=== PATIENT | male | born 1955 | race Caucasian/White ===

== ENCOUNTER → 2020-02-15 10:21 | Outpatient (CLI) | payer OTHER, SELFPAY | PROVIDERS: PCP Student in an Organized Health Care Education/Training Program; Referring Provider Student in an Organized Health Care Education/Training Program; Visit Provider Family Medicine | DX: S81.802A Unspecified open wound, left lower leg, initial encounter (principal) | CPT/HCPCS: 11042; 87070; 87075; 87205; 99203; 99213 ==

== ENCOUNTER → 2020-02-22 09:54 | Outpatient (CLI) | payer OTHER, SELFPAY | PROVIDERS: PCP Student in an Organized Health Care Education/Training Program; Referring Provider Student in an Organized Health Care Education/Training Program; Visit Provider Family Medicine | DX: S81.802A Unspecified open wound, left lower leg, initial encounter (principal) | CPT/HCPCS: 11042 ==

== ENCOUNTER → 2020-03-07 11:28 | Outpatient (CLI) | payer OTHER, SELFPAY | PROVIDERS: PCP Student in an Organized Health Care Education/Training Program; Referring Provider Student in an Organized Health Care Education/Training Program; Visit Provider Family Medicine | DX: S81.802A Unspecified open wound, left lower leg, initial encounter (principal) | CPT/HCPCS: 11042 ==

== ENCOUNTER → 2020-03-14 14:41 | Outpatient (CLI) | payer OTHER, SELFPAY | PROVIDERS: PCP Student in an Organized Health Care Education/Training Program; Referring Provider Student in an Organized Health Care Education/Training Program; Visit Provider Family Medicine | DX: S81.802A Unspecified open wound, left lower leg, initial encounter (principal) | CPT/HCPCS: 97607; 99213 ==

== ENCOUNTER → 2020-03-21 10:09 | Outpatient (CLI) | payer OTHER, SELFPAY | PROVIDERS: PCP Student in an Organized Health Care Education/Training Program; Referring Provider Student in an Organized Health Care Education/Training Program; Visit Provider Family Medicine | DX: S81.802A Unspecified open wound, left lower leg, initial encounter (principal) | CPT/HCPCS: 15271; 99213; Q4110 ==

== ENCOUNTER → 2020-03-30 11:17 | Outpatient (CLI) | payer OTHER, SELFPAY | PROVIDERS: PCP Student in an Organized Health Care Education/Training Program; Referring Provider Student in an Organized Health Care Education/Training Program; Visit Provider Family Medicine | DX: S81.802A Unspecified open wound, left lower leg, initial encounter (principal) | CPT/HCPCS: 97597 ==

== ENCOUNTER → 2020-04-06 11:49 | Outpatient (CLI) | payer OTHER, SELFPAY | PROVIDERS: PCP Student in an Organized Health Care Education/Training Program; Referring Provider Student in an Organized Health Care Education/Training Program; Visit Provider Family Medicine | DX: S81.802A Unspecified open wound, left lower leg, initial encounter (principal); S51.001A Unspecified open wound of right elbow, initial encounter; L03.113 Cellulitis of right upper limb | CPT/HCPCS: 11042; 87070; 87075; 87205; 97597; 99214 ==

== ENCOUNTER → 2020-04-20 15:27 | Outpatient (CLI) | payer OTHER, SELFPAY | PROVIDERS: PCP Student in an Organized Health Care Education/Training Program; Referring Provider Student in an Organized Health Care Education/Training Program; Visit Provider Family Medicine | DX: S51.001A Unspecified open wound of right elbow, initial encounter (principal); Z48.01 Encounter for change or removal of surgical wound dressing; R53.83 Other fatigue; R68.83 Chills (without fever) | CPT/HCPCS: 87070; 87075; 87205; 97597; 99213 ==

== ENCOUNTER 2020-06-17 23:52 | Emergency (ER) | payer OTHER, SELFPAY ==
[2020-06-18 00:06] VITALS: BP 157/92; PULSE 82; RESP 18; TEMP 36.5; O2SAT 100; BMI 18.3
--- NOTE | 2020-06-18 00:08 | ED_ITS ---
HPI - General Adult General Chief complaint: Toxicology Problem Stated complaint: Pt just went for alcohol detox, having problems Time Seen by Provider: 06/17/20 23:55 Source: patient Mode of arrival: other (Taxi) Limitations: no limitations History of Present Illness HPI narrative: Patient is a 64-year-old male who stated that he left alcohol detox down in [facility] today. He states that he was scheduled to be discharged tomorrow however he thought that ?something was going on ?with the medications that he was receiving down there. Patient states he was getting Librium and Ativan. He states ?I know what Librium looks like ?in the medicine that he was receiving he stated look different than his prior medications. He states that he voluntarily went to detox at this facility and checked himself in at the beginning of the week. Towards the middle of the week he stated that he was having quite a bit of shaking. He stated that he asked the staff down there for a physician's desk of reference so that he could cross reference the pills that he was receiving with the the pictures in the book and he stated that he was yelled at by the staff. He left voluntarily. He stated he arrived at this facility by taxi. He did admit to drinking alcohol prior to arrival. He has been in detox in the past. Admits to being an alcoholic. Has gone through withdrawals in the past. Has never had a seizure. He comes to this department here asking for help with alcohol issues. Related Data Previous Rx's Medication Instructions Recorded lorazepam [Ativan] 1 mg PO DAILY PRN #9 tab 06/18/20 Allergies Allergy/AdvReac Type Severity Reaction Status Date / Time No Known Drug Allergies Allergy Verified 06/18/20 01:52 PDT Review of Systems Constitutional Constitutional: Denies fever(s) and Denies headache(s) ENT Ears, Nose, Mouth, and Throat: Denies headache(s) Cardiovascular Cardiovascular: Denies chest pain and Denies dyspnea Respiratory Respiratory: Denies dyspnea Gastrointestinal Gastrointestinal: Denies abdominal pain Musculoskeletal Musculoskeletal: Denies arthralgias and Denies myalgias Integumentary/Breasts Skin/Breast: Denies rash Neurologic Neurologic: Denies headache(s) and Reports tremor(s) Hematologic/Lymphatic Hematologic/Lymphatic: Denies easy bleeding and Denies easy bruising Allergic/Immunologic Allergic/Immunologic: Denies urticaria Patient History Medical History Alcohol abuse (Acute) Social History Smoking Status: Current every day smoker Exam Initial Vital Signs Initial Vital Signs: Vital Signs Temperature 97.7 F 06/18/20 00:06 Pulse Rate 82 06/18/20 00:06 Respiratory Rate 18 06/18/20 00:06 Blood Pressure 157/92 H 06/18/20 00:06 Pulse Oximetry 100 06/18/20 00:06 Const General: cooperative, comfortable and anxious Limitations: mental status not altered HENMT Head: normal to inspection and normocephalic Resp Effort & Inspection: normal respiratory effort Cardio Rate: regular rate Skin Lesions: no lesions Rashes: no rashes Neuro General: patient alert, patient awake and patient oriented x3 Speech: speech normal Psych Appearance: well kempt Speech and Movement: restless Mood: anxious mood Affect: irritable affect Attitude: cooperative Scores GCS Matador coma scale eye opening: Spontaneous Matador coma scale verbal response: Orientated Mat[place] coma scale motor response: Obey commands [place] coma scale total score: 15 Course Orders Ordered: ED Orders 06/18/20 00:30 Complete Blood Count AUTO DIFF Stat Comprehensive Metabolic Panel Stat Ethanol (ETOH) Stat Lipase Stat 06/18/20 00:45 Urine Drug Screen, Rapid Stat 06/18/20 00:50 COVID19 -ED/INPAT/OR/L&D Stat Discontinued Medications Acetaminophen (Tylenol) 650 mg PO NOW ONE Stop: 06/18/20 00:38 Last Admin: 06/18/20 00:42 Dose: 650 mg Documented by: RUBI Chlordiazepoxide HCl (Librium) 25 mg PO NOW ONE Stop: 06/18/20 00:16 Last Admin: 06/18/20 00:42 Dose: 25 mg Documented by: RUBI Chlordiazepoxide HCl (Librium) 25 mg PO NOW ONE Stop: 06/18/20 02:00 Last Admin: 06/18/20 01:48 PST Dose: 25 mg Documented by: MARIAH Ondansetron HCl (Zofran Odt) 4 mg SL NOW ONE Stop: 06/18/20 00:38 Last Admin: 06/18/20 00:43 Dose: 4 mg Documented by: RUBI Vital Signs Vital signs: Vital Signs - 8 hr 06/18/20 00:06 06/18/20 01:55 PDT 06/18/20 01:32 PST Temperature 97.7 F Pulse Rate 82 78 69 Respiratory Rate 18 17 Blood Pressure 157/92 H 150/80 H Pulse Oximetry 100 98 100 Medical Decision Making Lab Data Lab results reviewed: Yes I reviewed the patient's lab results. Result diagrams: 06/18/20 00:30 06/18/20 00:30 Labs: Lab Results 06/18/20 06/18/20 06/18/20 Range/Units 00:30 00:30 00:30 WBC 8.4 (4.5-11.0) X10^3/uL RBC 3.83 L (4.5-5.9) X10^6/uL Hgb 12.7 L (13.5-17.5) g/dL Hct 37.3 L (41-53) % MCV 97.6 (80-100) fL MCH 33.2 (26-34) PG MCHC 34.0 (30-36) % RDW 14.6 (11.6-14.8) % Plt Count 216 (150-400) X10^3/uL Neut % (Auto) 57.0 (50-75) % Lymph % (Auto) 27.7 (25-40) % [place] % (Auto) 13.0 (3-14) % Eos % (Auto) 1.2 L (2-4) % Baso % (Auto) 1.1 (0-2) % Neut # (Auto) 4800 (8097-1922) /uL Lymph # (Auto) 2300 (2995-1317) /uL [place] # (Auto) 1100 H (0-900) /uL Eos # (Auto) 100 (0-450) /uL Baso # (Auto) 100 (0-100) /uL Sodium 137 (137-145) mmol/L Potassium 3.9 (3.4-5.1) mmol/L Chloride 103 (98-107) mmol/L Carbon Dioxide 28 (22-32) mmol/L BUN 11 (9-20) mg/dL Creatinine 0.67 (0.66-1.25) mg/dL Estimated GFR > 60.0 (>60) mL/min BUN/Creatinine Ratio 16.4 (6-22) Glucose 61 L (80-110) mg/dL Calcium 9.0 (8.4-10.2) mg/dL Total Bilirubin 0.4 (0.2-1.3) mg/dL AST 69 H (17-59) IU/L ALT 74 H (<50) IU/L Alkaline Phosphatase 95 (38-126) U/L Total Protein 7.4 (6.3-8.2) g/dL Albumin 4.4 (3.5-5.0) g/dL Globulin 3.0 (1.7-4.1) g/dL Albumin/Globulin Ratio 1.5 (1.0-2.8) Lipase 408 H (23-300) U/L U Opiates 300ng/mL cut (Negative) Ur Oxycodone Screen (Negative) Urine Methadone Screen (Negative) Ur Barbiturates Screen (Negative) U Tricyclic Antidepress (Negative) Ur Phencyclidine Scrn (Negative) Ur Amphetamines Screen (Negative) U Methamphetamines Scrn (Negative) Ur MDMA Scrn (Ecstasy) (Negative) U Benzodiazepines Scrn (Negative) Urine Cocaine Screen (Negative) U Marijuana (THC) Screen (Negative) Ethyl Alcohol 125 H ( - 10) mg/dL COVID-19 PCR (Negative) 06/18/20 06/18/20 Range/Units 00:45 00:50 WBC (4.5-11.0) X10^3/uL RBC (4.5-5.9) X10^6/uL Hgb (13.5-17.5) g/dL Hct (41-53) % MCV (80-100) fL MCH (26-34) PG MCHC (30-36) % RDW (11.6-14.8) % Plt Count (150-400) X10^3/uL Neut % (Auto) (50-75) % Lymph % (Auto) (25-40) % [place] % (Auto) (3-14) % Eos % (Auto) (2-4) % Baso % (Auto) (0-2) % Neut # (Auto) (6383-8645) /uL Lymph # (Auto) (6754-8717) /uL [place] # (Auto) (0-900) /uL Eos # (Auto) (0-450) /uL Baso # (Auto) (0-100) /uL Sodium (137-145) mmol/L Potassium (3.4-5.1) mmol/L Chloride (98-107) mmol/L Carbon Dioxide (22-32) mmol/L BUN (9-20) mg/dL Creatinine (0.66-1.25) mg/dL Estimated GFR (>60) mL/min BUN/Creatinine Ratio (6-22) Glucose (80-110) mg/dL Calcium (8.4-10.2) mg/dL Total Bilirubin (0.2-1.3) mg/dL AST (17-59) IU/L ALT (<50) IU/L Alkaline Phosphatase (38-126) U/L Total Protein (6.3-8.2) g/dL Albumin (3.5-5.0) g/dL Globulin (1.7-4.1) g/dL Albumin/Globulin Ratio (1.0-2.8) Lipase (23-300) U/L U Opiates 300ng/mL cut Negative (Negative) Ur Oxycodone Screen Negative (Negative) Urine Methadone Screen Negative (Negative) Ur Barbiturates Screen Negative (Negative) U Tricyclic Antidepress Negative (Negative) Ur Phencyclidine Scrn Negative (Negative) Ur Amphetamines Screen Negative (Negative) U Methamphetamines Scrn Negative (Negative) Ur MDMA Scrn (Ecstasy) Negative (Negative) U Benzodiazepines Scrn Positive H (Negative) Urine Cocaine Screen Negative (Negative) U Marijuana (THC) Screen Negative (Negative) Ethyl Alcohol ( - 10) mg/dL COVID-19 PCR Negative (Negative) MDM Narrative Medical decision making narrative: UDS positive for benzodiazepines however he has been receiving Ativan and Librium. Alcohol level 125. Patient admitted to drinking alcohol prior to arrival. He is alert oriented x3. Patient is medically cleared. Discharge Plan Departure Patient Disposition: Home Clinical Impression: Alcoholic intoxication Instructions: DI for Alcohol Use Disorder Activity Restrictions/Additional Instructions: You are being discharged to go to alcohol detox. Prescriptions: New lorazepam [Ativan] 1 mg tablet 1 mg PO DAILY PRN (Reason: alcohol withdrawal) Qty: 9 RF: 0 Referrals: Osito Chatman [Other]
--- NOTE | 2020-06-18 00:32 | PC.NURSE ---
Pt reports intake of 4 beers just before I came here. [place] ferry [place] 10 [place]. Reports intermittent depression. No thoughts of harming self/suicide. Left detox [facility], states there's something wrong there. Didn't think they were giving him the meds they were supposed to be, they looked different.
[2020-06-18 00:41] LABS: Add Manual Diff / Slide Review NO; Basophils Absolute Auto 100 /uL (0-100); Basophils Percent Auto 1.1 % (0-2); Eosinophils Absolute Auto 100 /uL (0-450); Eosinophils Percent Auto 1.2 % (2-4); Hematocrit 37.3 % (41-53); Hemoglobin 12.7 g/dL (13.5-17.5); Lymphocytes Absolute Auto 2300 /uL (1100-4500); Lymphocytes Percent Auto 27.7 % (25-40); Mean Corpuscular Hemoglobin 33.2 PG (26-34); Mean Corpuscular Volume 97.6 fL (80-100); Monocytes Absolute Auto 1100 /uL (0-900); Neutrophils Absolute Auto 4800 /uL (1500-7000); Platelet Count 216 X10^3/uL (150-400); Red Blood Cell Count 3.83 X10^6/uL (4.5-5.9); Red Cell Distribution Width 14.6 % (11.6-14.8); White Blood Cell Count 8.4 X10^3/uL (4.5-11.0)
[2020-06-18] MEDS: chlordiazePOXIDE 25 MG CAPSULE PO ×3 (00:42→06:54)
[2020-06-18] MEDS: ACETAMINOPHEN 325 MG TABLET 650 MG PO (00:42)
[2020-06-18] MEDS: ONDANSETRON 4 MG ODT SL (00:43)
[2020-06-18 00:50] LABS: Alanine Aminotransferase 74 IU/L (<50); Albumin 4.4 g/dL (3.5-5.0); Albumin Globulin Ratio 1.5 (1.0-2.8); Alkaline Phosphatase 95 U/L (38-126); Aspartate Aminotransferase 69 IU/L (17-59); BUN Creatinine Ratio 16.4 (6-22); Bilirubin Total 0.4 mg/dL (0.2-1.3); Blood Urea Nitrogen 11 mg/dL (9-20); Carbon Dioxide 28 mmol/L (22-32); Chloride 103 mmol/L (98-107); Estimated Glomerular Filt Rate > 60.0 mL/min (>60); Ethanol (ETOH) 125 mg/dL; Glucose 61 mg/dL (80-110); HEMOLYSIS < 15 (0-50); Lipase 408 U/L (23-300); Potassium 3.9 mmol/L (3.4-5.1); Sodium 137 mmol/L (137-145); Total Protein 7.4 g/dL (6.3-8.2)
[2020-06-18 01:08] LABS: COVID19 -Nasal RAPID Negative (Negative)
[2020-06-18 01:16] LABS: UR Morphine/Opiate cutoff 300 Negative (Negative); Ur Creatinine Normal (Normal); Ur Specific Gravity Normal (Normal); Urine Amphetamines Negative (Negative); Urine Barbiturates Negative (Negative); Urine Benzodiazepines Positive (Negative); Urine Cocaine Negative (Negative); Urine MDMA Negative (Negative); Urine Methadone Negative (Negative); Urine Methamphetamines Negative (Negative); Urine Oxycodone Negative (Negative); Urine Phencyclidine Negative (Negative); Urine Tetrahydrocannabinol Negative (Negative); Urine Tricyclic Antidepressant Negative (Negative); Urine pH Normal (Normal)
[2020-06-18 01:32] VITALS: PULSE 69; O2SAT 100
[2020-06-18 01:55] VITALS: BP 150/80; PULSE 78; RESP 17; O2SAT 98
[2020-06-18 06:51] VITALS: BP 115/80; PULSE 83; RESP 18; O2SAT 98
== END 2020-06-18 07:09 | disposition home or self-care (01) ==
PROVIDERS: Emergency Provider Emergency Medicine
DX: F10.129 Alcohol abuse with intoxication, unspecified (principal); Y90.6 Blood alcohol level of 120-199 mg/100 ml
CPT/HCPCS: 36415; 80053; 80305; 80320; 83690; 85025; 87635; 99283; 99284

== ENCOUNTER 2023-05-03 20:07 | Emergency (ER) | payer OTHER, SELFPAY ==
[2023-05-03 20:26] VITALS: BP 145/79; PULSE 95; RESP 16; TEMP 37.2; O2SAT 95; BMI 20.9
--- NOTE | 2023-05-03 20:49 | ED_ITS ---
HPI - General Adult <Mari Park MD - Last Filed: 05/04/23 18:02> General Chief complaint: Toxicology Problem Stated complaint: Alcohol withdraws Time Seen by Provider: 05/03/23 20:39 Source: family Mode of arrival: Ambulatory History of Present Illness HPI narrative: 67-year-old gentleman with a history of alcohol use disorder. He had a 19 year period of sobriety and was participating in AA. He had a returned to use about a year and a half ago that was brief. He has been drinking for the last 48 hour s and wants to prevent this from escalating. He presents asking for help with withdrawal symptoms and help for getting into alcohol detox. He reports slight chronic cough and chronic tobacco use. No other recreational drug use. No recent fevers, chills, abdominal pain, chest pain, lower extremity edema. Related Data Previous Rx's Medication Instructions Recorded lorazepam 1 mg tablet (Ativan) 1 mg PO DAILY PRN alcohol 06/18/20 withdrawal #9 tabs Allergies Allergy/AdvReac Type Severity Reaction Status Date / Time egg Allergy Verified 05/04/23 08:03 Review of Systems <Mari Park MD - Last Filed: 05/04/23 18:02> Review of Systems Narrative: Pertinent positive and negative findings as per HPI Patient History <Mari Park MD - Last Filed: 05/04/23 18:02> Medical History Alcohol abuse Social History Smoking Status: Current every day smoker Smoking Status: Current every day smoker alcohol intake frequency: 3 or more drinks per day Alcohol type: wine Substance Use Type: does not use Exam <Mari Park MD - Last Filed: 05/04/23 18:02> Initial Vital Signs Initial Vital Signs: Vital Signs Temperature 99.0 F 05/03/23 20:26 Pulse Rate 95 H 05/03/23 20:26 Respiratory Rate 16 05/03/23 20:26 Blood Pressure 145/79 H 05/03/23 20:26 Pulse Oximetry 95 05/03/23 20:26 Oxygen Delivery Method Room Air 05/03/23 20:26 General: Mildly anxious, Able to give a complete and coherent history. Well- nourished well-developed HEENT: Moist mucous membranes, normal sclera with reactive pupils, Neck: No JVD, supple Respiratory: Lungs are clear to auscultation, no wheezing no rales no rhonchi. Full and symmetrical air movement Cardiac: Mild tachycardia but otherwise Regular rate and rhythm no murmurs no bruits Abdomen: Soft, nontender, good bowel tones, no flank pain Skin: Warm and dry, slightly flushed Neurologic: Grossly neurologically intact with no obvious asymmetries or abnormalities Extremities: No trauma, mild hand tremor Psych: Cooperative, appropriate insight and affect <Amadeo Eaton DO - Last Filed: 05/04/23 17:12> Initial Vital Signs Initial Vital Signs: Vital Signs Temperature 99.0 F 05/03/23 20:26 Pulse Rate 95 H 05/03/23 20:26 Respiratory Rate 16 05/03/23 20:26 Blood Pressure 145/79 H 05/03/23 20:26 Pulse Oximetry 95 05/03/23 20:26 Oxygen Delivery Method Room Air 05/03/23 20:26 Course <Mari Park MD - Last Filed: 05/04/23 18:02> Orders Ordered: ED Orders 05/04/23 09:55 [place] Stat Discontinued Medications Chlordiazepoxide HCl (Chlordiazepoxide 25 Mg Capsule) 50 mg PO NOW ONE Stop: 05/03/23 22:26 Last Admin: 05/03/23 22:32 Dose: 50 mg Documented By: SB Chlordiazepoxide HCl (Chlordiazepoxide 25 Mg Capsule) 50 mg PO NOW ONE Stop: 05/04/23 04:26 Last Admin: 05/04/23 04:29 Dose: 50 mg Documented By: MEI Chlordiazepoxide HCl (Chlordiazepoxide 25 Mg Capsule) 50 mg PO NOW ONE Stop: 05/04/23 09:47 Last Admin: 05/04/23 09:57 Dose: 50 mg Documented By: RLS Chlordiazepoxide HCl (Chlordiazepoxide 25 Mg Capsule) 50 mg PO NOW ONE Stop: 05/04/23 12:59 Last Admin: 05/04/23 13:04 Dose: 50 mg Documented By: RLS Thiamine HCl (Thiamine 100 Mg Tablet) 100 mg PO NOW ONE Stop: 05/03/23 22:30 Last Admin: 05/03/23 22:32 Dose: 100 mg Documented By: SB Vital Signs Vital signs: Vital Signs - 8 hr 05/04/23 13:04 Temperature 98.6 F Pulse Rate 75 Respiratory Rate 14 Blood Pressure 165/88 H Pulse Oximetry 98 Oxygen Delivery Method Room Air <Amadeo Eaton DO - Last Filed: 05/04/23 17:12> Orders Ordered: ED Orders 05/04/23 09:55 [place] Stat Discontinued Medications Chlordiazepoxide HCl (Chlordiazepoxide 25 Mg Capsule) 50 mg PO NOW ONE Stop: 05/03/23 22:26 Last Admin: 05/03/23 22:32 Dose: 50 mg Documented By: LISA Chlordiazepoxide HCl (Chlordiazepoxide 25 Mg Capsule) 50 mg PO NOW ONE Stop: 05/04/23 04:26 Last Admin: 05/04/23 04:29 Dose: 50 mg Documented By: MEI Chlordiazepoxide HCl (Chlordiazepoxide 25 Mg Capsule) 50 mg PO NOW ONE Stop: 05/04/23 09:47 Last Admin: 05/04/23 09:57 Dose: 50 mg Documented By: CARLITO Chlordiazepoxide HCl (Chlordiazepoxide 25 Mg Capsule) 50 mg PO NOW ONE Stop: 05/04/23 12:59 Last Admin: 05/04/23 13:04 Dose: 50 mg Documented By: CARLITO Thiamine HCl (Thiamine 100 Mg Tablet) 100 mg PO NOW ONE Stop: 05/03/23 22:30 Last Admin: 05/03/23 22:32 Dose: 100 mg Documented By: LISA Vital Signs Vital signs: Vital Signs - 8 hr 05/04/23 13:04 Temperature 98.6 F Pulse Rate 75 Respiratory Rate 14 Blood Pressure 165/88 H Pulse Oximetry 98 Oxygen Delivery Method Room Air Medical Decision Making <Mari Park MD - Last Filed: 05/04/23 18:02> Lab Data 05/03/23 20:59 05/03/23 20:59 Labs: Lab Results 05/03/23 05/03/23 05/03/23 Range/Units 20:59 20:59 20:59 WBC 17.0 H (4.5-11.0) X10^3/uL RBC 4.87 (4.5-5.9) X10^6/uL Hgb 15.5 (13.5-17.5) g/dL Hct 44.6 (41-53) % MCV 91.5 (80-100) fL MCH 31.8 (26-34) PG MCHC 34.8 (30-36) % RDW 13.1 (11.6-14.8) % Plt Count 302 (150-400) X10^3/uL Neut % (Auto) 68.4 (50-75) % Lymph % (Auto) 26.1 (25-40) % [place] % (Auto) 4.5 (3-14) % Eos % (Auto) 0.4 L (2-4) % Baso % (Auto) 0.6 (0-2) % Neut # (Auto) 49672 H (7800-3831) /uL Lymph # (Auto) 4400 (5489-0202) /uL [place] # (Auto) 800 (0-900) /uL Eos # (Auto) 100 (0-450) /uL Baso # (Auto) 100 (0-100) /uL Sodium 139 (137-145) mmol/L Potassium 4.6 (3.4-5.1) mmol/L Chloride 106 (98-107) mmol/L Carbon Dioxide 21 L (22-32) mmol/L BUN 16 (9-20) mg/dL Creatinine 0.81 (0.66-1.25) mg/dL Estimated GFR > 60 (>60) mL/min BUN/Creatinine Ratio 19.8 (6-22) Glucose 101 (80-110) mg/dL Calcium 9.1 (8.4-10.2) mg/dL Total Bilirubin 0.4 (0.2-1.3) mg/dL AST 25 (17-59) IU/L ALT 19 (<50) IU/L Alkaline Phosphatase 81 (38-126) U/L Total Protein 7.6 (6.3-8.2) g/dL Albumin 4.6 (3.5-5.0) g/dL Globulin 3.0 (1.7-4.1) g/dL Albumin/Globulin Ratio 1.5 (1.0-2.8) TSH 0.944 (0.47-4.68) uIU/mL Free T4 1.04 (0.78-2.19) ng/dL Urine RBC (0-5/HPF) Urine WBC (0-5/HPF) Ur Squamous Epith Cells (0-5/HPF) Urine Bacteria (None) Ur Culture Indicated? Salicylates < 1.0 (<20) mg/dL U Opiates 300ng/mL cut (Negative) Ur Oxycodone Screen (Negative) Urine Methadone Screen (Negative) Acetaminophen < 10 (10-30) ug/mL Ur Barbiturates Screen (Negative) U Tricyclic Antidepress (Negative) Ur Phencyclidine Scrn (Negative) Ur Amphetamines Screen (Negative) U Methamphetamines Scrn (Negative) Ur MDMA Scrn (Ecstasy) (Negative) U Benzodiazepines Scrn (Negative) [place] (0.6-1.2) mmol/L Urine Cocaine Screen (Negative) U Marijuana (THC) Screen (Negative) Ethyl Alcohol 175 H ( - 10) mg/dL SARS-CoV-2 (PCR) (Negative) 05/03/23 05/03/23 05/03/23 Range/Units 22:05 22:05 22:21 WBC (4.5-11.0) X10^3/uL RBC (4.5-5.9) X10^6/uL Hgb (13.5-17.5) g/dL Hct (41-53) % MCV (80-100) fL MCH (26-34) PG MCHC (30-36) % RDW (11.6-14.8) % Plt Count (150-400) X10^3/uL Neut % (Auto) (50-75) % Lymph % (Auto) (25-40) % [place] % (Auto) (3-14) % Eos % (Auto) (2-4) % Baso % (Auto) (0-2) % Neut # (Auto) (1458-8282) /uL Lymph # (Auto) (8133-7778) /uL [place] # (Auto) (0-900) /uL Eos # (Auto) (0-450) /uL Baso # (Auto) (0-100) /uL Sodium (137-145) mmol/L Potassium (3.4-5.1) mmol/L Chloride (98-107) mmol/L Carbon Dioxide (22-32) mmol/L BUN (9-20) mg/dL Creatinine (0.66-1.25) mg/dL Estimated GFR (>60) mL/min BUN/Creatinine Ratio (6-22) Glucose (80-110) mg/dL Calcium (8.4-10.2) mg/dL Total Bilirubin (0.2-1.3) mg/dL AST (17-59) IU/L ALT (<50) IU/L Alkaline Phosphatase (38-126) U/L Total Protein (6.3-8.2) g/dL Albumin (3.5-5.0) g/dL Globulin (1.7-4.1) g/dL Albumin/Globulin Ratio (1.0-2.8) TSH (0.47-4.68) uIU/mL Free T4 (0.78-2.19) ng/dL Urine RBC 0-1/hpf (0-5/HPF) Urine WBC None seen (0-5/HPF) Ur Squamous Epith Cells None seen (0-5/HPF) Urine Bacteria None seen (None) Ur Culture Indicated? Cult not indicated Salicylates (<20) mg/dL U Opiates 300ng/mL cut Negative (Negative) Ur Oxycodone Screen Negative (Negative) Urine Methadone Screen Negative (Negative) Acetaminophen (10-30) ug/mL Ur Barbiturates Screen Negative (Negative) U Tricyclic Antidepress Negative (Negative) Ur Phencyclidine Scrn Negative (Negative) Ur Amphetamines Screen Negative (Negative) U Methamphetamines Scrn Negative (Negative) Ur MDMA Scrn (Ecstasy) Negative (Negative) U Benzodiazepines Scrn Negative (Negative) [place] (0.6-1.2) mmol/L Urine Cocaine Screen Negative (Negative) U Marijuana (THC) Screen Negative (Negative) Ethyl Alcohol ( - 10) mg/dL SARS-CoV-2 (PCR) Negative (Negative) 05/04/23 Range/Units 09:55 WBC (4.5-11.0) X10^3/uL RBC (4.5-5.9) X10^6/uL Hgb (13.5-17.5) g/dL Hct (41-53) % MCV (80-100) fL MCH (26-34) PG MCHC (30-36) % RDW (11.6-14.8) % Plt Count (150-400) X10^3/uL Neut % (Auto) (50-75) % Lymph % (Auto) (25-40) % [place] % (Auto) (3-14) % Eos % (Auto) (2-4) % Baso % (Auto) (0-2) % Neut # (Auto) (0453-0043) /uL Lymph # (Auto) (7382-4784) /uL [place] # (Auto) (0-900) /uL Eos # (Auto) (0-450) /uL Baso # (Auto) (0-100) /uL Sodium (137-145) mmol/L Potassium (3.4-5.1) mmol/L Chloride (98-107) mmol/L Carbon Dioxide (22-32) mmol/L BUN (9-20) mg/dL Creatinine (0.66-1.25) mg/dL Estimated GFR (>60) mL/min BUN/Creatinine Ratio (6-22) Glucose (80-110) mg/dL Calcium (8.4-10.2) mg/dL Total Bilirubin (0.2-1.3) mg/dL AST (17-59) IU/L ALT (<50) IU/L Alkaline Phosphatase (38-126) U/L Total Protein (6.3-8.2) g/dL Albumin (3.5-5.0) g/dL Globulin (1.7-4.1) g/dL Albumin/Globulin Ratio (1.0-2.8) TSH (0.47-4.68) uIU/mL Free T4 (0.78-2.19) ng/dL Urine RBC (0-5/HPF) Urine WBC (0-5/HPF) Ur Squamous Epith Cells (0-5/HPF) Urine Bacteria (None) Ur Culture Indicated? Salicylates (<20) mg/dL U Opiates 300ng/mL cut (Negative) Ur Oxycodone Screen (Negative) Urine Methadone Screen (Negative) Acetaminophen (10-30) ug/mL Ur Barbiturates Screen (Negative) U Tricyclic Antidepress (Negative) Ur Phencyclidine Scrn (Negative) Ur Amphetamines Screen (Negative) U Methamphetamines Scrn (Negative) Ur MDMA Scrn (Ecstasy) (Negative) U Benzodiazepines Scrn (Negative) [place] < 0.2 L (0.6-1.2) mmol/L Urine Cocaine Screen (Negative) U Marijuana (THC) Screen (Negative) Ethyl Alcohol ( - 10) mg/dL SARS-CoV-2 (PCR) (Negative) Urine Dip Bedside Urine Glucose Negative Bedside Urine Bilirubin - Negative Bedside Urine Ketone - Negative Urine Specific [place] 1.02 Bedside Urine Occult Blood +/- Bedside Urine pH 6 Bedside Urine Protein - Negative Bedside Urine Urobilinogen - Negative Bedside Urine Nitrite - Negative Bedside Urine Leukocytes - Negative Esterase Point of care testing: Urine Dip Bedside Urine Glucose Negative Bedside Urine Bilirubin - Negative Bedside Urine Ketone - Negative Urine Specific [place] 1.02 Bedside Urine Occult Blood +/- Bedside Urine pH 6 Bedside Urine Protein - Negative Bedside Urine Urobilinogen - Negative Bedside Urine Nitrite - Negative Bedside Urine Leukocytes - Negative Esterase MDM Narrative Medical decision making narrative: CC: Alcohol use disorder with returned use requesting help with detox Complicating co-morbidities: Alcohol use disorder Data collected from: patient, Differential considered: Acute intoxication, alcohol use disorder, additional recreational drug use Exam documented above, pertinent findings include: Mild tremor, cooperative with good insight, good eye contact not responding to internal stimuli, appropriate insight. CIWA=4 prior to librium Lab Test results independently reviewed as above. Pertinent findings: Urine toxicology is unremarkable Alcohol level is at 175 CBC shows a leukocytosis at 17,000. There is no left shift no signs of infection and I suspect that this is simply demargination. No anemia Chemistries are reassuring, LFTs are within normal limits Thyroid studies are appropriate Consultations: Patient did phone consultation with [facility] stabilization facility in [place] Treatments: 50 mg of oral Librium, 100 mg of oral thiamine Re-evaluations: Patient is stable and interested in detox 430am again called [facility]. They have not had their provider review his case. They have being paging provider since 11pm. May need to wait until 7am provider is available. Pt is aware of delay. Requests another dose librium, currently at 6 hrs. 2nd dose of 50mg librium given Discussion: Alcohol use disorder with returned to use drinking for the last 48 hours. Beds are available at [facility], patient is medically stable we will see if we are able to transfer him. <Amadeo Eaton, DO - Last Filed: 05/04/23 17:12> Lab Data Labs: Lab Results 05/03/23 05/03/23 05/03/23 Range/Units 20:59 20:59 20:59 WBC 17.0 H (4.5-11.0) X10^3/uL RBC 4.87 (4.5-5.9) X10^6/uL Hgb 15.5 (13.5-17.5) g/dL Hct 44.6 (41-53) % MCV 91.5 (80-100) fL MCH 31.8 (26-34) PG MCHC 34.8 (30-36) % RDW 13.1 (11.6-14.8) % Plt Count 302 (150-400) X10^3/uL Neut % (Auto) 68.4 (50-75) % Lymph % (Auto) 26.1 (25-40) % [place] % (Auto) 4.5 (3-14) % Eos % (Auto) 0.4 L (2-4) % Baso % (Auto) 0.6 (0-2) % Neut # (Auto) 33291 H (5020-7264) /uL Lymph # (Auto) 4400 (1486-9282) /uL [place] # (Auto) 800 (0-900) /uL Eos # (Auto) 100 (0-450) /uL Baso # (Auto) 100 (0-100) /uL Sodium 139 (137-145) mmol/L Potassium 4.6 (3.4-5.1) mmol/L Chloride 106 (98-107) mmol/L Carbon Dioxide 21 L (22-32) mmol/L BUN 16 (9-20) mg/dL Creatinine 0.81 (0.66-1.25) mg/dL Estimated GFR > 60 (>60) mL/min BUN/Creatinine Ratio 19.8 (6-22) Glucose 101 (80-110) mg/dL Calcium 9.1 (8.4-10.2) mg/dL Total Bilirubin 0.4 (0.2-1.3) mg/dL AST 25 (17-59) IU/L ALT 19 (<50) IU/L Alkaline Phosphatase 81 (38-126) U/L Total Protein 7.6 (6.3-8.2) g/dL Albumin 4.6 (3.5-5.0) g/dL Globulin 3.0 (1.7-4.1) g/dL Albumin/Globulin Ratio 1.5 (1.0-2.8) TSH 0.944 (0.47-4.68) uIU/mL Free T4 1.04 (0.78-2.19) ng/dL Urine RBC (0-5/HPF) Urine WBC (0-5/HPF) Ur Squamous Epith Cells (0-5/HPF) Urine Bacteria (None) Ur Culture Indicated? Salicylates < 1.0 (<20) mg/dL U Opiates 300ng/mL cut (Negative) Ur Oxycodone Screen (Negative) Urine Methadone Screen (Negative) Acetaminophen < 10 (10-30) ug/mL Ur Barbiturates Screen (Negative) U Tricyclic Antidepress (Negative) Ur Phencyclidine Scrn (Negative) Ur Amphetamines Screen (Negative) U Methamphetamines Scrn (Negative) Ur MDMA Scrn (Ecstasy) (Negative) U Benzodiazepines Scrn (Negative) [place] (0.6-1.2) mmol/L Urine Cocaine Screen (Negative) U Marijuana (THC) Screen (Negative) Ethyl Alcohol 175 H ( - 10) mg/dL SARS-CoV-2 (PCR) (Negative) 05/03/23 05/03/23 05/03/23 Range/Units 22:05 22:05 22:21 WBC (4.5-11.0) X10^3/uL RBC (4.5-5.9) X10^6/uL Hgb (13.5-17.5) g/dL Hct (41-53) % MCV (80-100) fL MCH (26-34) PG MCHC (30-36) % RDW (11.6-14.8) % Plt Count (150-400) X10^3/uL Neut % (Auto) (50-75) % Lymph % (Auto) (25-40) % [place] % (Auto) (3-14) % Eos % (Auto) (2-4) % Baso % (Auto) (0-2) % Neut # (Auto) (4834-6044) /uL Lymph # (Auto) (1127-9238) /uL [place] # (Auto) (0-900) /uL Eos # (Auto) (0-450) /uL Baso # (Auto) (0-100) /uL Sodium (137-145) mmol/L Potassium (3.4-5.1) mmol/L Chloride (98-107) mmol/L Carbon Dioxide (22-32) mmol/L BUN (9-20) mg/dL Creatinine (0.66-1.25) mg/dL Estimated GFR (>60) mL/min BUN/Creatinine Ratio (6-22) Glucose (80-110) mg/dL Calcium (8.4-10.2) mg/dL Total Bilirubin (0.2-1.3) mg/dL AST (17-59) IU/L ALT (<50) IU/L Alkaline Phosphatase (38-126) U/L Total Protein (6.3-8.2) g/dL Albumin (3.5-5.0) g/dL Globulin (1.7-4.1) g/dL Albumin/Globulin Ratio (1.0-2.8) TSH (0.47-4.68) uIU/mL Free T4 (0.78-2.19) ng/dL Urine RBC 0-1/hpf (0-5/HPF) Urine WBC None seen (0-5/HPF) Ur Squamous Epith Cells None seen (0-5/HPF) Urine Bacteria None seen (None) Ur Culture Indicated? Cult not indicated Salicylates (<20) mg/dL U Opiates 300ng/mL cut Negative (Negative) Ur Oxycodone Screen Negative (Negative) Urine Methadone Screen Negative (Negative) Acetaminophen (10-30) ug/mL Ur Barbiturates Screen Negative (Negative) U Tricyclic Antidepress Negative (Negative) Ur Phencyclidine Scrn Negative (Negative) Ur Amphetamines Screen Negative (Negative) U Methamphetamines Scrn Negative (Negative) Ur MDMA Scrn (Ecstasy) Negative (Negative) U Benzodiazepines Scrn Negative (Negative) [place] (0.6-1.2) mmol/L Urine Cocaine Screen Negative (Negative) U Marijuana (THC) Screen Negative (Negative) Ethyl Alcohol ( - 10) mg/dL SARS-CoV-2 (PCR) Negative (Negative) 05/04/23 Range/Units 09:55 WBC (4.5-11.0) X10^3/uL RBC (4.5-5.9) X10^6/uL Hgb (13.5-17.5) g/dL Hct (41-53) % MCV (80-100) fL MCH (26-34) PG MCHC (30-36) % RDW (11.6-14.8) % Plt Count (150-400) X10^3/uL Neut % (Auto) (50-75) % Lymph % (Auto) (25-40) % [place] % (Auto) (3-14) % Eos % (Auto) (2-4) % Baso % (Auto) (0-2) % Neut # (Auto) (0117-7327) /uL Lymph # (Auto) (0344-1461) /uL [place] # (Auto) (0-900) /uL Eos # (Auto) (0-450) /uL Baso # (Auto) (0-100) /uL Sodium (137-145) mmol/L Potassium (3.4-5.1) mmol/L Chloride (98-107) mmol/L Carbon Dioxide (22-32) mmol/L BUN (9-20) mg/dL Creatinine (0.66-1.25) mg/dL Estimated GFR (>60) mL/min BUN/Creatinine Ratio (6-22) Glucose (80-110) mg/dL Calcium (8.4-10.2) mg/dL Total Bilirubin (0.2-1.3) mg/dL AST (17-59) IU/L ALT (<50) IU/L Alkaline Phosphatase (38-126) U/L Total Protein (6.3-8.2) g/dL Albumin (3.5-5.0) g/dL Globulin (1.7-4.1) g/dL Albumin/Globulin Ratio (1.0-2.8) TSH (0.47-4.68) uIU/mL Free T4 (0.78-2.19) ng/dL Urine RBC (0-5/HPF) Urine WBC (0-5/HPF) Ur Squamous Epith Cells (0-5/HPF) Urine Bacteria (None) Ur Culture Indicated? Salicylates (<20) mg/dL U Opiates 300ng/mL cut (Negative) Ur Oxycodone Screen (Negative) Urine Methadone Screen (Negative) Acetaminophen (10-30) ug/mL Ur Barbiturates Screen (Negative) U Tricyclic Antidepress (Negative) Ur Phencyclidine Scrn (Negative) Ur Amphetamines Screen (Negative) U Methamphetamines Scrn (Negative) Ur MDMA Scrn (Ecstasy) (Negative) U Benzodiazepines Scrn (Negative) [place] < 0.2 L (0.6-1.2) mmol/L Urine Cocaine Screen (Negative) U Marijuana (THC) Screen (Negative) Ethyl Alcohol ( - 10) mg/dL SARS-CoV-2 (PCR) (Negative) Urine Dip Bedside Urine Glucose Negative Bedside Urine Bilirubin - Negative Bedside Urine Ketone - Negative Urine Specific [place] 1.02 Bedside Urine Occult Blood +/- Bedside Urine pH 6 Bedside Urine Protein - Negative Bedside Urine Urobilinogen - Negative Bedside Urine Nitrite - Negative Bedside Urine Leukocytes - Negative Esterase Point of care testing: Urine Dip Bedside Urine Glucose Negative Bedside Urine Bilirubin - Negative Bedside Urine Ketone - Negative Urine Specific [place] 1.02 Bedside Urine Occult Blood +/- Bedside Urine pH 6 Bedside Urine Protein - Negative Bedside Urine Urobilinogen - Negative Bedside Urine Nitrite - Negative Bedside Urine Leukocytes - Negative Esterase MDM Narrative Medical decision making narrative: CC: Alcohol use disorder with returned use requesting help with detox Complicating co-morbidities: Alcohol use disorder Data collected from: patient, Differential considered: Acute intoxication, alcohol use disorder, additional recreational drug use Exam documented above, pertinent findings include: Mild tremor, cooperative with good insight, good eye contact not responding to internal stimuli, appropriate insight. CIWA=4 prior to librium Lab Test results independently reviewed as above. Pertinent findings: Urine toxicology is unremarkable Alcohol level is at 175 CBC shows a leukocytosis at 17,000. There is no left shift no signs of infection and I suspect that this is simply demargination. No anemia Chemistries are reassuring, LFTs are within normal limits Thyroid studies are appropriate Consultations: Patient did phone consultation with [facility] stabilization facility in [place] Treatments: 50 mg of oral Librium, 100 mg of oral thiamine Re-evaluations: Patient is stable and interested in detox 430am again called [facility]. They have not had their provider review his case. They have being paging provider since 11pm. May need to wait until 7am provider is available. Pt is aware of delay. Requests another dose librium, currently at 6 hrs. 2nd dose of 50mg librium given Discussion: Alcohol use disorder with returned to use drinking for the last 48 hours. Beds are available at [facility], patient is medically stable we will see if we are able to transfer him. Dr eaton: Received turned over. Review patient's history and physical and workup up to this point. Patient does have a history of alcohol abuse. Was sober for approximately 19 years. Had 1 episode where he relapsed in the past however this episode he has been drinking the past 3 days. Patient is seeking help with his alcohol abuse. Patient has been accepted. He is stable for transport to detox. Discharge Plan Departure Patient Disposition: Released, Other Clinical Impression: Alcohol use disorder Alcohol withdrawal syndrome Qualifiers: Complication of substance-induced condition: uncomplicated Qualified Code(s): F10.930 - Alcohol use, unspecified with withdrawal, uncomplicated Alcoholic intoxication Qualifiers: Complication of substance-induced condition: uncomplicated Qualified Code(s): F10.920 - Alcohol use, unspecified with intoxication, uncomplicated Prescriptions: No Action lorazepam [Ativan] 1 mg tablet 1 mg PO DAILY PRN (Reason: alcohol withdrawal) Qty: 9 0RF Rx Instructions: 1T PO Q6H PRN for 24 hours then 1T PO Q8H PRN for 24 hours the 1T PO Q12H PRN for ETOH withdraw symptoms.
[2023-05-03 21:18] VITALS: O2SAT 98
[2023-05-03 21:19] VITALS: BP 149/84; PULSE 90; O2SAT 98
[2023-05-03 21:21] LABS: Acetaminophen < 10 ug/mL (10-30); Alanine Aminotransferase 19 IU/L (<50); Albumin 4.6 g/dL (3.5-5.0); Albumin Globulin Ratio 1.5 (1.0-2.8); Alkaline Phosphatase 81 U/L (38-126); Aspartate Aminotransferase 25 IU/L (17-59); BUN Creatinine Ratio 19.8 (6-22); Bilirubin Total 0.4 mg/dL (0.2-1.3); Blood Urea Nitrogen 16 mg/dL (9-20); Calcium 9.1 mg/dL (8.4-10.2); Carbon Dioxide 21 mmol/L (22-32); Chloride 106 mmol/L (98-107); Estimated Glomerular Filt Rate > 60 mL/min (>60); Ethanol (ETOH) 175 mg/dL; Glucose 101 mg/dL (80-110); HEMOLYSIS < 15 (0-50); Potassium 4.6 mmol/L (3.4-5.1); Salicylate < 1.0 mg/dL (<20); Sodium 139 mmol/L (137-145); Total Protein 7.6 g/dL (6.3-8.2)
[2023-05-03 21:31] LABS: Add Manual Diff / Slide Review NO; Basophils Absolute Auto 100 /uL (0-100); Basophils Percent Auto 0.6 % (0-2); Eosinophils Absolute Auto 100 /uL (0-450); Eosinophils Percent Auto 0.4 % (2-4); Hematocrit 44.6 % (41-53); Hemoglobin 15.5 g/dL (13.5-17.5); Lymphocytes Absolute Auto 4400 /uL (1100-4500); Lymphocytes Percent Auto 26.1 % (25-40); Mean Corpuscular HGB Conc 34.8 % (30-36); Mean Corpuscular Hemoglobin 31.8 PG (26-34); Mean Corpuscular Volume 91.5 fL (80-100); Monocytes Absolute Auto 800 /uL (0-900); Monocytes Percent Auto 4.5 % (3-14); Neutrophils Absolute Auto 11600 /uL (1500-7000); Neutrophils Percent Auto 68.4 % (50-75); Platelet Count 302 X10^3/uL (150-400); Red Blood Cell Count 4.87 X10^6/uL (4.5-5.9); Red Cell Distribution Width 13.1 % (11.6-14.8)
[2023-05-03 21:37] LABS: Free T4, Direct Thyroxine 1.04 ng/dL (0.78-2.19)
[2023-05-03 21:51] LABS: Thyroid Stimulating Hormone 0.944 uIU/mL (0.47-4.68)
[2023-05-03 22:15] LABS: Ur Creatinine Normal (Normal); Ur Specific Gravity Normal (Normal); Urine pH Normal (Normal)
[2023-05-03 22:16] LABS: UR Morphine/Opiate cutoff 300 Negative (Negative); Urine Amphetamines Negative (Negative); Urine Barbiturates Negative (Negative); Urine Benzodiazepines Negative (Negative); Urine Cocaine Negative (Negative); Urine MDMA Negative (Negative); Urine Methadone Negative (Negative); Urine Methamphetamines Negative (Negative); Urine Oxycodone Negative (Negative); Urine Phencyclidine Negative (Negative); Urine Tetrahydrocannabinol Negative (Negative); Urine Tricyclic Antidepressant Negative (Negative)
[2023-05-03] MEDS: chlordiazePOXIDE 25 MG CAPSULE 50 MG PO (22:32)
[2023-05-03] MEDS: THIAMINE 100 MG TABLET PO (22:32)
[2023-05-03 22:34] LABS: Bacteria Urine None Seen; Culture Indicated Urine Cult Not Indicated; RBC Urine 0-1/HPF (0-5/HPF); Squamous Epithelial Cell Urine None Seen (0-5/HPF); WBC Urine None Seen (0-5/HPF)
[2023-05-03 22:40] LABS: COVID19 -Nasal RAPID Negative (Negative)
[2023-05-04] VITALS (10 sets, daily range): BP systolic 134–165; BP diastolic 71–88; PULSE 61–96; RESP 14–20; TEMP 37; O2SAT 92–98
--- NOTE | 2023-05-04 01:08 | PC.NURSE ---
Followed up with [facility], at this time we are waiting for the provider's acceptance. All appropriate paperwork was faxed and received at [phone].
--- NOTE | 2023-05-04 03:07 | PC.NURSE ---
Called [facility] again to f/u on acceptance, no word from provider at this time.
[2023-05-04] MEDS: chlordiazePOXIDE 25 MG CAPSULE 50 MG PO ×3 (04:29→13:04)
[2023-05-04 10:23] LABS: Lithium < 0.2 mmol/L (0.6-1.2)
== END 2023-05-04 13:25 | disposition home or self-care (01) ==
PROVIDERS: Emergency Medicine; Emergency Provider Emergency Medicine
DX: F10.930 Alcohol use, unspecified with withdrawal, uncomplicated (principal); F10.920 Alcohol use, unspecified with intoxication, uncomplicated; Z20.822 Contact with and (suspected) exposure to COVID-19
CPT/HCPCS: 36415; 80053; 80178; 80305; 80320; 80329; 81003; 81015; 84439; 84443; 85025; 87635; 99284; C9803; G0480

== ENCOUNTER 2024-06-01 08:20 | Emergency (ER) | payer OTHER, MEDICAID, SELFPAY ==
--- NOTE | 2024-06-01 08:21 | ED_ITS ---
HPI - Extremity Problem General Chief complaint: Extremity Injury, Upper Stated complaint: R shoulder pain/injury Time Seen by Provider: 06/01/24 08:21 History of Present Illness HPI Narrative: Patient is a 68-year-old male with a history of alcohol use disorder, comes into the ED for evaluation of right shoulder pain that started approximately 2 days ago after he was lifting a ladder and states that it ?got away from him states that he had immediate pain to his right shoulder, states that since then he has been having persistent pain, but denies any weakness numbness to his right lower extremity, states he does have a history of rotator cuff issues to that right shoulder but that did not require surgical intervention. Denies any other injuries at this time. He has not complaining of any other systemic symptoms. Related Data Previous Rx's Medication Instructions Recorded lorazepam 1 mg tablet (Ativan) 1 mg PO DAILY PRN alcohol 06/18/20 withdrawal #9 tabs Allergies Allergy/AdvReac Type Severity Reaction Status Date / Time egg Allergy Verified 05/04/23 08:03 Review of Systems Review of Systems Narrative: General: Denies fever, chills, weight loss HEENT: Denies headache, eye drainage, eye irritation, head trauma, sore throat, voice change Cardiovascular: Denies any chest pain, palpitations, shortness of breath, tachycardia Respiratory: Denies any shortness of breath, cough, wheeze, stridor GI/: Denies any abdominal pain, nausea, vomiting, diarrhea, bright red blood per rectum, melanotic stools, urinary frequency, urinary retention, dysuria, hematuria MSK: Positive for right shoulder pain Skin: Denies any rashes, lesions, discoloration Neuro: Denies any headache, lightheadedness, dizziness, fainting, weakness Psych: Denies SI/HI Patient History Medical History Alcohol abuse Social History Smoking Status: Current every day smoker Smoking Status: Current every day smoker alcohol intake frequency: 3 or more drinks per day Alcohol type: wine Substance Use Type: does not use Exam Narrative Exam Narrative: General: Cooperative, comfortable, well-developed, not in acute distress HEENT: Normocephalic, atraumatic, PERRLA, normal sclera, eyelids normal, Neck: Active full range of motion, atraumatic Chest: Normal to inspection, negative crepitus, no overlying erythema ecchymosis Respiratory: Normal respiratory effort, not in acute respiratory distress, clear to auscultation bilaterally negative cough, wheeze, tachypnea, rhonchi, rales Cardiology: Regular rate rhythm negative gallop, murmur, rubs GI/: Normal to inspection, soft, nonrigid, no tenderness to palpation, exam deferred MSK: Patient with decreased active and passive range of motion of the right shoulder secondary to pain, however there is no overlying tenderness to palpation no bony prominences, neurovascularly Skin: No rashes lesions noted Neuro: Alert awake oriented x3, moves all 4 extremities spontaneously, cranial nerves intact, able to answer all questions appropriately follows commands appropriately Psych: Cooperative, negative suicidal or homicidal ideations Initial Vital Signs Initial Vital Signs: Vital Signs Temperature 98.5 F 06/01/24 08:28 Pulse Rate 75 06/01/24 08:28 Respiratory Rate 18 06/01/24 08:28 Blood Pressure 172/81 H 06/01/24 08:28 Pulse Oximetry 99 06/01/24 08:28 Oxygen Delivery Method Room Air 06/01/24 08:28 Course Orders Ordered: ED Orders 06/01/24 08:26 XR shoulder RT min 2V Stat Discontinued Medications Acetaminophen (Acetaminophen 325 Mg Tablet) 975 mg PO NOW ONE Stop: 06/01/24 08:27 Last Admin: 06/01/24 09:12 Dose: Not Given Documented By: NEEL Vital Signs Vital signs: Vital Signs - 8 hr 06/01/24 08:28 Temperature 98.5 F Pulse Rate 75 Respiratory Rate 18 Blood Pressure 172/81 H Pulse Oximetry 99 Oxygen Delivery Method Room Air MDM - Extremity (Nontraumatic) Imaging Data Extremity x-ray #1: Radiologist's Impression: [address] [address] XRay Report Signed Patient: Milad Mon MR#: [id number] : 1955 Acct:[id number] Age/Sex: 68 / M Date of Service: 06/01/24 Loc: ED Accession Number: [id number] Procedure: XR shoulder RT min 2V Ordering Provider: Byron Washington D.O. PROCEDURE: XR SHOULDER RT MIN 2V INDICATIONS: pain after lifting ladder TECHNIQUE: 3 views of the shoulder were acquired. COMPARISON: None. FINDINGS: Bones: No fractures or dislocations. No suspicious bony lesions. Visualized ribs appear intact. Soft tissues: No suspicious soft tissue calcifications. IMPRESSION: No visualized acute fracture or dislocation. However, if clinical concern and/or pain persist, short interval imaging followup in 7-10 days is recommended, as occult injury cannot be definitively excluded. MDM Narrative Medical decision making narrative: Patient is a 68-year-old male past medical history of alcohol use disorder presents to the emergency department for evaluation of right shoulder pain after he lifted a ladder which got away from him. This happened approximately 2 days ago, has had persistent pain but denies any numbness tingling weakness to his right upper extremity, states it is similar to when he had issues with rotator cuff in the past but did not require surgical intervention at that time. No other injuries. X-ray did not show any acute findings, patient will be placed in a sling and followed up in an outpatient setting with orthopedic surgery for possible rotator cuff injury. Patient was given strict return precautions, he verbalized understanding of this and agrees to being discharged home with outpatient follow up Discharge Plan Departure Patient Disposition: Home Clinical Impression: Acute pain of right shoulder Activity Restrictions/Additional Instructions: Please read the discharge instructions sheet carefully and bring all papers to all doctor follow-up visits, as it may contain information that your doctor may want to see. Disease processes change and evolve, if your symptoms worsen or if you develop any new symptoms that are concerning to you please return for evaluation. Your evaluation today does not show any evidence of any life- threatening/serious illnesses requiring admission to the hospital or surgery. Please follow-up with your doctor for re-evaluation in approximately 1 day. Seek immediate medical attention for any worrisome symptoms. Prescriptions: No Action lorazepam [Ativan] 1 mg tablet 1 mg PO DAILY PRN (Reason: alcohol withdrawal) Qty: 9 0RF Rx Instructions: 1T PO Q6H PRN for 24 hours then 1T PO Q8H PRN for 24 hours the 1T PO Q12H PRN for ETOH withdraw symptoms. Referrals: Jil Garcia MD [Physician] - (Right shoulder pain, possible rotator cuff injury) Stand Alone Forms: Patient Portal/API
--- NOTE | 2024-06-01 08:26 | DI.RAD.S_ITS ---
PROCEDURE: XR SHOULDER RT MIN 2V INDICATIONS: pain after lifting ladder TECHNIQUE: 3 views of the shoulder were acquired. COMPARISON: None. FINDINGS: Bones: No fractures or dislocations. No suspicious bony lesions. Visualized ribs appear intact. Soft tissues: No suspicious soft tissue calcifications. IMPRESSION: No visualized acute fracture or dislocation. However, if clinical concern and/or pain persist, short interval imaging followup in 7-10 days is recommended, as occult injury cannot be definitively excluded. Dictated by: Jia Moseley M.D. on 06/01/2024 at 9:05 Approved by: Jia Moseley M.D. on 06/01/2024 at 9:06
[2024-06-01 08:28] VITALS: BP 172/81; PULSE 75; RESP 18; TEMP 36.9; O2SAT 99; BMI 20.9
== END 2024-06-01 09:31 | disposition home or self-care (01) ==
PROVIDERS: Emergency Provider Student in an Organized Health Care Education/Training Program; PCP Family Medicine
DX: M25.511 Pain in right shoulder (principal); X50.9XXA Other and unspecified overexertion or strenuous movements or postures, initial encounter
CPT/HCPCS: 73030; 99282; 99283